=== PATIENT | female | born 1980 | race Caucasian/White ===

== ENCOUNTER 2021-04-02 14:39 | Emergency (ER) | payer MEDICAID ==
[~2021-04-02] VITALS: Ht 170.2 cm; Wt 71.7 kg
[~2021-04-02 14:39] MED LIST: METH4TAB3 PO
[2021-04-02 15:05] VITALS: BP 110/71
[2021-04-02] MEDS ORDERED: PENI250T2 PO (16:03)
[2021-04-02] MEDS ORDERED: LIDO20SO16 PO (16:03)
[2021-04-02] MEDS ORDERED: PRED20TA PO (16:03)
== END 2021-04-02 16:33 | disposition home or self-care (01) ==
LOC: ER 14:39
DX: K04.7 Periapical abscess without sinus (principal); Z88.0 Allergy status to penicillin; Z88.8 Allergy status to other drugs, medicaments and biological substances
CPT/HCPCS: 99283

== ENCOUNTER 2021-06-05 12:38 | Emergency (ER) | payer MEDICAID ==
[~2021-06-05] VITALS: Ht 154.9 cm; Wt 63.6 kg
[~2021-06-05 12:38] MED LIST changes: +LIDO20SO16 PO
[2021-06-05 12:46] VITALS: BP 110/69
[2021-06-05] MEDS ORDERED: HYDR-3965 PO (14:23)
== END 2021-06-05 15:05 | disposition home or self-care (01) ==
LOC: ER 12:39
DX: S82.832A Other fracture of upper and lower end of left fibula, initial encounter for closed fracture (principal); X50.0XXA Overexertion from strenuous movement or load, initial encounter; Y93.89 Activity, other specified; Y92.89 Other specified places as the place of occurrence of the external cause; Y99.8 Other external cause status
CPT/HCPCS: 29515; 73610; 99283

== ENCOUNTER 2021-12-27 13:32 | Emergency (ER) | payer MEDICAID ==
[~2021-12-27] VITALS: Ht 153 cm; Wt 62.7 kg
[2021-12-27 13:46] VITALS: BP 132/82
[2021-12-27] MEDS ORDERED: PRED20TA PO (14:44)
[2021-12-27] MEDS ORDERED: triamcinolone acetonide 40mg/ml inj IM ONE (14:45)
[2021-12-28] MEDS ORDERED: PRED20TA PO (14:36)
== END 2021-12-27 15:01 | disposition home or self-care (01) ==
LOC: ER 13:32
DX: L23.7 Allergic contact dermatitis due to plants, except food (principal); Z87.81 Personal history of (healed) traumatic fracture; Z79.899 Other long term (current) drug therapy
CPT/HCPCS: 96372; 99283; J3301